=== PATIENT | female | born 1985 | race Caucasian/White ===

== ENCOUNTER 2019-12-07 00:27 | Emergency (ER) | payer OTHER ==
[~2019-12-07] VITALS: Ht 157.5 cm; Wt 97.5 kg
[~2019-12-07 00:27] MED LIST: IRON325 PO; PRENATAL PO
[2019-12-07] MEDS ORDERED: CLARITIN10 M1 PO (00:40)
[2019-12-07] MEDS ORDERED: FLONASE 0.05%50 MCG NARES (00:40)
[2019-12-07] MEDS ORDERED: SUDAFED PE SIN1 EACH PO (00:41)
[2019-12-07] MEDS ORDERED: TYLENOL WITH CO1 TA1 PO (01:29)
[2019-12-07 01:40] VITALS: BP 152/89
[2019-12-16] MEDS ORDERED: ZYRTEC10 MG PO (08:04)
== END 2019-12-07 01:41 | disposition home or self-care (01) ==
LOC: M.ERS 00:27
DX: S62.397A Other fracture of fifth metacarpal bone, left hand, initial encounter for closed fracture (principal); Z79.899 Other long term (current) drug therapy; W23.0XXA Caught, crushed, jammed, or pinched between moving objects, initial encounter; Y93.89 Activity, other specified; Y92.89 Other specified places as the place of occurrence of the external cause; Y99.9 Unspecified external cause status

== ENCOUNTER → 2019-12-12 | Outpatient (CLI) | payer OTHER ==
[~2019-12-12] MED LIST changes: +CLARITIN10 M1 PO; +FLONASE 0.05%50 MCG NARES; +SUDAFED PE SIN1 EACH PO; +TYLENOL WITH CO1 TA1 PO; +ZYRTEC10 MG PO
== END ==
LOC: M.LAB 16:38
PROVIDERS: ATTEND Orthopaedic Surgery
DX: Z01.812 Encounter for preprocedural laboratory examination (principal); Z11.59 Encounter for screening for other viral diseases

== ENCOUNTER → 2019-12-17 | Day surgery (SDC) | payer OTHER ==
[2019-12-17 11:26] LABS: HEMATOCRIT 37.2 % (37.0-47.0); HEMOGLOBIN 12.8 gm/dL (12.0-15.0)
--- NOTE | 2019-12-19 15:50 | OP ---
[address] [address] OPERATIVE REPORT Name: RADHA PEREZ Room: [facility].#: [id number] Admission: 12/17/19 Attend Phys: Roderick Parekh DO Discharge: Date of : 81 Report #: [id number] THIS REPORT FOR: //name// cc: Physician not on staff Physician not on staff ~ THIS REPORT FOR: //name// CC: Roderick BALDWIN Physician staff DATE OF SERVICE: 12/17/2019 ORTHOPEDIC SURGERY NOTE PREOPERATIVE DIAGNOSIS: Displaced left fifth metacarpal oblique neck fracture. POSTOPERATIVE DIAGNOSIS: Displaced left fifth metacarpal oblique neck fracture. SURGERY PERFORMED: Closed reduction and percutaneous pinning with 0.45 K-wires. SURGEON: Roderick Parekh DO ANESTHESIA: Supraclavicular block and general anesthetic. ANTIBIOTICS: She did receive Ancef 2 grams IV preoperatively. COMPLICATIONS: None. SPECIMENS: None. DRAINS: None. GROSS FINDINGS: Prior to surgery, this patient did demonstrate obvious fracture, seen by my partner, Dr. Waddell. I was elected to help care for her in his absence. The patient's x-rays correlated with an oblique neck fracture, displacement and also on comparison of her right hand fifth metacarpal and her left hand fifth metacarpal and fingers, she does have an obvious rotational old deformity which is normal for her right hand and a very mild one to the left hand, but no crossover type finger deformity. Post placement of the pin, she demonstrated improved alignment of the fracture and no rotational deformity. SURGEON: Roderick Parekh DO ANESTHESIA: Again, as above. [address] [place] [address] OPERATIVE REPORT Name: RADHA PEREZ Room: [facility].#: [id number] Admission: 12/17/19 Attend Phys: Roderick Parekh DO Discharge: Date of : 81 Report #: [id number] COMPLICATIONS: None. SPECIMENS: None. DRAINS: None. SURGERY IN DETAIL: The patient was taken to the operating room and placed on table, given a general anesthetic plus had the previous supraclavicular block. She underwent a chlorhexidine prep and sterile draping for left arm surgery. Timeout was called and verified by everyone in the room for the left arm. At this point in time, surgery continued then with doing a closed reduction and verifying this reduction in AP and lateral views. Two guidewire pins were placed across this fracture site holding the fracture in good appropriate position as best could be. The patient did not have any other gross significant findings on my examination. Post-pinning, the rotation deformity was very acceptable, as very minimal to no deformity. The pins were cut and Jurgan ball placed about one non-Jurgan ball on the other. They were well-padded with Xeroform. I did a 4 x 4, Kerlix, soft roll, ulnar gutter splint. She was transferred off the table, taken to recovery in stable condition. I attest I was present for the entire surgery. <ELECTRONICALLY SIGNED> By: Roderick Parekh DO 12/19/19 1550 [id number] Parekh DO /nt
== END | disposition home or self-care (01) ==
LOC: M.SUR 10:29
PROVIDERS: ATTEND Orthopaedic Surgery
DX: S62.337A Displaced fracture of neck of fifth metacarpal bone, left hand, initial encounter for closed fracture (principal); M25.542 Pain in joints of left hand; G43.909 Migraine, unspecified, not intractable, without status migrainosus; Z98.890 Other specified postprocedural states; Z79.899 Other long term (current) drug therapy; X58.XXXA Exposure to other specified factors, initial encounter; Y93.89 Activity, other specified; Y92.89 Other specified places as the place of occurrence of the external cause; Y99.8 Other external cause status

== ENCOUNTER 2021-03-23 08:17 | Emergency (ER) | payer OTHER ==
[~2021-03-23] VITALS: Ht 157.5 cm; Wt 99.8 kg
[2021-03-23 09:08] LABS: ABSOLUTE LYMPHOCYTES 1.1 thou/uL (0.8-5.3); ABSOLUTE MONOCYTES 0.7 thou/uL (0.0-1.2); ABSOLUTE NEUTROPHILS 3.3 thou/uL (1.6-8.1); BASOPHILS 0.7 %; EOSINOPHILS 0.9 %; HEMATOCRIT 39.4 % (37.0-47.0); HEMOGLOBIN 13.5 gm/dL (12.0-15.0); LYMPHOCYTES 21.1 %; MCH 28.7 pg (26.0-34.0); MCHC 34.2 g/dL (28.0-37.0); MCV 84.1 fL (80.0-100.0); MONOCYTES 12.9 %; MPV 7.6 fl. (7.2-11.1); NUCLEATED RBCS 0 /100WBC; PLATELET COUNT* 269 thou/uL (150-400); POLYS 64.4 %; RBC 4.69 mil/uL (4.20-5.00); RDW-CV 13.5 % (10.5-14.5); WBC 5.2 thou/uL (4.0-11.0)
[2021-03-23 09:19] LABS: CALCIUM 8.9 mg/dL (8.5-10.1); CREATININE 0.8 mg/dL (0.6-1.3)
[2021-03-23 09:21] LABS: URINE BLOOD 2+ (Negative); URINE CLARITY SL CLOUDY; URINE COLOR DARK YELLOW; URINE GLUCOSE-RANDOM NEGATIVE (Negative); URINE KETONES NEGATIVE (Negative); URINE LEUKOCYTES-REFLEX NEGATIVE (Negative); URINE PROTEIN 3+ (Negative); URINE SPECIFIC GRAVITY 1.025 (1.005-1.030); URINE UROBILINOGEN 0.2 E.U./dl (0.2-1.0)
[2021-03-23 09:23] LABS: ALBUMIN 3.4 g/dL (3.4-5.0); TOTAL BILIRUBIN 0.5 mg/dL (<0.1-1.0); TOTAL PROTEIN 8.7 g/dL (6.4-8.2)
[2021-03-23 09:27] LABS: ICTOTEST (BILI CONFIRMATORY) Negative (Negative); URINE BILIRUBIN 1+ (Negative); URINE NITRITE-REFLEX POSITIVE (Negative)
[2021-03-23 09:33] LABS: SQUAMOUS 0-3 Few /LPF (0-3)
[2021-03-23 09:34] LABS: BACTERIA-REFLEX >30 Many /HPF (None Seen); CRYSTALS None Seen /LPF (None Seen); HYALINE CASTS >10 Many /LPF (None Seen); MUCUS >6 Heavy strn/LPF (None Seen); URINE RBC 3-10 Few /HPF (0-2); URINE WBC-REFLEX 0-5 Rare /HPF (0-5)
[2021-03-23] MEDS ORDERED: PROAIR HFA8.5 GM INH (11:00)
[2021-03-23] MEDS ORDERED: AZITHROMYCIN 2250 MG PO (11:00)
[2021-03-23] MEDS ORDERED: TESSALON PERLE100 M1 PO (11:00)
[2021-03-23] MEDS ORDERED: CEPHALEXIN500 MG PO (12:16)
[2021-03-23 12:28] VITALS: BP 118/71
== END 2021-03-23 12:28 | disposition home or self-care (01) ==
LOC: M.ERS 08:17
PROVIDERS: Emergency Medicine
DX: U07.1 COVID-19 (principal); J12.82 Pneumonia due to coronavirus disease 2019; J20.8 Acute bronchitis due to other specified organisms; N39.0 Urinary tract infection, site not specified; R19.7 Diarrhea, unspecified; Z91.048 Other nonmedicinal substance allergy status; Z79.899 Other long term (current) drug therapy